=== PATIENT | male | born 1970 | race Caucasian/White ===

== ENCOUNTER 2022-08-21 15:53 | Emergency (ER) | payer SELFPAY ==
--- NOTE | 2022-08-21 16:21 | ED ---
CPR HPI - General Stated Complaint: VTACH Time Seen by Provider: 08/21/22 15:53 Source: EMS Limitations: physical limitation - History of Present Illness Initial Comments: This patient is brought by ambulance after having collapsed while fishing. EMS was activated by a bystander. Patient was reportedly fishing in [place] when a bystander noticed him "stiffening up" and then fall into the water. Bystanders told him most away from the water, activated EMS, and EMS arrived and began ACLS protocol. EMS report is that he was initially in ventricular fibrillation. ACLS protocol was continued, patient had received amiodarone 300 mg, epinephrine 6 mg, the patient did briefly have an organized rhythm with a pulse but then lost that and they continued CPR. Patient also had endotracheal intubation. EMS found a blood sugar of 149. On arrival, patient is of course not able to give any history. MD Complaint: collapsed during activity -: minute(s) Place: street Bystander CPR Performed: No Number of Shocks Delivered: >3 Initial Findings in the Field: unresponsive, VTACH/VFIB ROSC in the Field: Yes Associated Injuries: No Treatments Prior to Arrival: intubation, chest compressions, defibrillated shocks #, epinephrine mgs # (6), amiodarone Review of Systems ROS Statement: Those systems with pertinent positive or pertinent negative responses have been documented in the HPI. ROS Other: All systems not noted in ROS Statement are negative. Limitations: ROS unobtainable due to patients medical condition General Exam Limitations: physical limitation General appearance: other (Unresponsive) Head exam: Present: atraumatic, normocephalic Eye exam: Absent: scleral icterus, conjunctival injection Pupils: Present: other (Pupils are nonreactive, approximately 4 mm. ) ENT exam: Present: other (Mucous membranes are cyanotic. There is a bite block with an endotracheal tube secured) Neck exam: Present: normal inspection, other (No evident step-off or deformity) Respiratory exam: Present: other (There are good bilateral breath sounds during bagging. There is no spontaneous inspiratory effort.) Cardiovascular Exam: Present: other (There is no detectable pulse or blood pressure. No cardiac sounds. No PMI) GI/Abdominal exam: Present: soft. Absent: tenderness, mass exam: Present: normal inspection Extremities exam: Present: normal inspection, other (No evident trauma or deformity.) Back exam: Present: normal inspection, other (No evident trauma or deformity) Neurological exam: Present: other (GCS is 3. There are no neurologic signs of life.) Skin exam: Present: warm, dry, cyanosis. Absent: rash Course Vital Signs 08/21/22 15:53 Temperature 92.8 F L - Reevaluation(s) Reevaluation #1: 08/21/22 16:47 Case is discussed with the medical staff assistant. Medical Decision Making - Medical Decision Making This patient is brought by ambulance for evaluation after apparent cardiac arrest. The patient found in ventricular fibrillation. ACLS protocol implemented by the EMS personnel. They did briefly have an organized rhythm and detected pulses at one point but subsequently lost in the field. On arrival ACLS is continued. Please see the code sheet. The patient subsequently deteriorated into asystole and pronounced in the emergency department at 1613 Disposition Clinical Impression: Cardiopulmonary arrest, Ventricular fibrillation Disposition: Is patient prescribed a controlled substance at d/c from ED?: No Referrals: None,Stated [Primary Care Provider] - 1-2 days Preliminary Cause of : Cardiopulmonary arrest
[2022-08-21 16:38] VITALS: TEMP 92.8
[2022-08-21 16:51] VITALS: PULSE 0; RESP 0
== END 2022-08-21 23:00 | disposition expired ==
LOC: EC 15:53
DX: I46.9 Cardiac arrest, cause unspecified (principal); I49.01 Ventricular fibrillation
CPT/HCPCS: 99285